=== PATIENT | male | born 1945 | race Caucasian/White ===

== ENCOUNTER → 2021-01-22 10:14 | Outpatient (REF) | payer MEDICARE, SELFPAY | LOC: ANHLAB 10:14 | PROVIDERS: Visit Provider Nurse Practitioner | DX: L98.9 Disorder of the skin and subcutaneous tissue, unspecified (principal) | CPT/HCPCS: 88305; 88331 ==

== ENCOUNTER 2024-02-05 17:23 | Observation (INO) | payer MEDICARE, SELFPAY ==
[2024-02-05] VITALS (9 sets, daily range): BP systolic 178–218; BP diastolic 87–110; PULSE 78–96; RESP 16–20; TEMP 36.4–37; O2SAT 95–99; BMI 30.9
--- NOTE | ~2024-02-05 | CT_ITS ---
EXAMINATION: CTA brain carotid DATE: 02/05/2024 17:52 INDICATION: Left-sided numbness TECHNIQUE: Computed tomographic angiography (CTA) of the head was performed with 100 mL Omnipaque-350 intravenous contrast. CTA of the neck was performed with intravenous contrast. The dose-length produ ct was 1280.76 mGy-cm. Maximum intensity projection and volume rendered 3D-reconstructions were creat ed by the technologist on a separate workstation. Automated exposure control and iterative reconstruc tion technique were employed. COMPARISON: None. FINDINGS: HEAD CTA: There is no acute intraparenchymal hemorrhage. No evidence of mass lesion. No evidence of a cute infarction. An old infarct of the right parieto-occipital region is noted. There is mild periven tricular and subcortical hypodensity probably related to small vessel ischemic disease. There is mild prominence of the sulci and ventricles related to cerebral atrophy. Intracranial calcified cerebral atherosclerosis is noted. There are no extra-axial collections. There is no mass effect or midline sh ift. Changes in the globes are likely from ocular lens surgery. A polyp or mucous retention cyst is n oted in the left maxillary sinus. There is no significant stenosis of the basilar artery or posterior cerebral arteries. There is no si gnificant stenosis of the intracranial internal carotid arteries or the anterior or middle cerebral a rteries. The anterior communicating artery and posterior communicating arteries are normal. There is no aneurysm. There is calcified atherosclerosis and significant stenosis of the right vertebral arter y near the skull base. NECK CTA: Nodules of the thyroid measure up to 9 mm on the left.. The submandibular and parotid gland s are symmetric. There is no lymphadenopathy. There are no masses identified. The airway is unremarka ble. The superior mediastinum is unremarkable. There is moderate cervical spondylosis. There is 0% stenosis of the proximal right internal carotid artery relative to normal distal artery l umen diameter (NASCET criteria). There is 0% stenosis of the proximal left internal carotid artery re lative to normal distal artery lumen diameter. IMPRESSION: 1. Prior right parietal occipital region infarct without acute intracranial abnormality. Significant stenosis of the right vertebral artery near the skull base, otherwise normal head CTA. 2. 0% stenosis of the proximal right internal carotid artery relative to normal distal artery lumen d iameter (NASCET criteria). 3. 0% stenosis of the proximal left internal carotid artery relative to normal distal artery lumen di ameter. Reviewed, dictated and finalized at location F. IMPRESSION: 1. Prior right parietal occipital region infarct without acute intracranial abn ormality. Significant stenosis of the right vertebral artery near the skull bas e, otherwise normal head CTA. 2. 0% stenosis of the proximal right internal carotid artery relative to normal distal artery lumen diameter (NASCET criteria). 3. 0% stenosis of the proximal left internal carotid artery relative to normal distal artery lumen diameter.
--- NOTE | ~2024-02-05 | CT_ITS ---
EXAMINATION: CT brain wo con INDICATION: Left-sided numbness COMPARISON: None TECHNIQUE: Standard unenhanced head CT. The dose-length product (DLP) was 681.00 mGy-cm. The mA was a djusted according to patient size. Iterative reconstruction technique was employed. FINDINGS: No acute intraparenchymal hemorrhage. No evidence of mass lesion. No evidence of acute infa rction. 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 There is mild periventricular and subcortical hypodensity probably related to small vessel ischemic disease. There is mild prominen ce of the sulci and ventricles related to cerebral atrophy. Intracranial calcified cerebral atheroscl erosis is noted. No extra-axial collections. No mass effect or midline shift. Changes in the globes a re likely from ocular lens surgery. There is a polyp or mucous retention cyst of the left maxillary s inus. IMPRESSION: 1. Prior right parieto-occipital region infarct without acute intracranial abnormality. 2. Age related findings. Reviewed, dictated and finalized at location F. IMPRESSION: 1. Prior right parieto-occipital region infarct without acute intracranial abno rmality. 2. Age related findings.
--- NOTE | ~2024-02-05 | MR_ITS ---
EXAMINATION: MR brain/brain stem wo/w con DATE: 02/06/2024 12:40 INDICATION: Transient ischemic episode TECHNIQUE: Magnetic resonance imaging (MRI) of the brain and brainstem was performed without and with 20 mL Multihance intravenous contrast. Sequences included sagittal and axial T1-weighted SE, axial d iffusion-weighted FS SE, axial 3D SWAN, axial T2-weighted FLAIR, and axial T2-weighted FSE. Postcontr ast axial and coronal T1-weighted SE was obtained. Apparent diffusion coefficient (ADC) maps were cre ated. COMPARISON: CT and CT angiogram dated 02/05/2024 FINDINGS: Small region of encephalomalacia in the right parieto-occipital region consistent with sequela of old infarct. There are no areas of restricted diffusion to suggest acute infarction. No intracranial hem orrhage or abnormal intracranial mass lesion. There are scattered areas of nonspecific increased T2-w eighted signal intensity in the cerebral white matter, predominantly involving the deep and periventr icular white matter. There are no intraparenchymal signal abnormalities seen on the other pulse seque nces. The ventricles are symmetric and normal in size. There are no abnormal extra-axial fluid collec tions. Flow voids are seen in the cerebral arteries on the T2-weighted sequences consistent with thei r expected patency. Changes of bilateral intraocular lens replacement. Visualized orbits and soft tis sues are unremarkable. Mild mucosal thickening in the bilateral maxillary and ethmoid sinuses. There are no areas of abnormal enhancement on the post contrast images. IMPRESSION: 1. Small old right parieto-occipital infarct. No acute intracranial process. 2. Scattered small foci of nonspecific cerebral white matter T2 hyperintensity which is within normal limits for age and likely sequela of chronic small vessel ischemic disease. Reviewed, dictated and finalized at location A. IMPRESSION: 1. Small old right parieto-occipital infarct. No acute intracranial process. 2. Scattered small foci of nonspecific cerebral white matter T2 hyperintensity which is within normal limits for age and likely sequela of chronic small vesse l ischemic disease.
--- NOTE | ~2024-02-05 | XR_ITS ---
EXAMINATION: XR chest 1V portable INDICATION: Left-sided numbness TECHNIQUE: Portable AP chest at 1758 hours COMPARISON: None available FINDINGS: The lungs are free of acute opacities. No pleural effusion or pneumothorax. The heart size is normal. Median sternotomy wires and mediastinal surgical clips are seen, likely from prior coronar y artery bypass grafting. IMPRESSION: 1. No acute cardiopulmonary abnormality. Reviewed, dictated and finalized at location F.
--- NOTE | 2024-02-05 17:26 | ECG_ITS ---
Measurements Intervals [place] Rate: 74 P: 59 NH: 173 QRS: -23 QRSD: 104 T: 54 QT: 397 QTc: 443 Interpretive Statements SINUS RHYTHM POSSIBLE LEFT ATRIAL ENLARGEMENT BORDERLINE R WAVE PROGRESSION, ANTERIOR LEADS NONSPECIFIC ST-T WAVE ABNORMALITY- HIGH LATERAL LEADS BASELINE WANDER- V5 BORDERLINE ECG NO PREVIOUS ECG AVAILABLE FOR COMPARISON Electronically Signed On 02-05-2024 18:32:28 CDT by Chu Castellano D.O.
--- NOTE | 2024-02-05 17:38 | ED.NEUROSD ---
HPI - Neuro Symptoms/Deficit General Chief Complaint: Suspected CVA Stated Complaint: L SIDED NUMBNESS SINCE 1700 Time Seen by Provider: 02/05/24 17:35 History of Present Illness HPI Narrative: 78-year-old male presents to the emergency department for evaluation for CVA symptoms. Patient states that at 5:00 p.m. he had onset of left-sided weakness. Patient states symptoms last about 20 minutes and did begin to improve. Upon arrival to the emergency department patient states he does still have some minor symptoms but denies any current numbness or weakness. Related Data Home Medications Medication Instructions Recorded Confirmed aspirin 81 mg tablet,delayed 81 mg PO DAILY 01/22/21 02/05/24 release (Adult Aspirin Regimen) triamterene 37.5 0.5 cap PO DAILY 02/05/24 02/05/24 mg-hydrochlorothiazide 25 mg capsule Allergies Allergy/AdvReac Type Severity Reaction Status Date / Time No Known Allergies Allergy Verified 02/04/24 14:02 Review of Systems Review of Systems: All systems reviewed & are unremarkable except as noted in HPI and below PMFSH Past Medical History Medical History Coronary artery disease Heart disease High cholesterol Hyperlipidemia Hypertension Preoperative clearance Surgical History Surgical History H/O hernia repair History of cholecystectomy History of heart bypass surgery Family History Family History Father Heart disease Social History Social History Smoking status: Never smoker Alcohol intake: never Substance use: never Substance use type: does not use Do You Feel Safe in your Home?: Yes Lack of Transportation: No Lack of Food: Never True Current Housing: I Have Housing Concerned About Future Housing: No Difficulty Paying Gas/Electric Bills: No Difficulty Paying for Meds: No Currently Unemployed: No Education: Master's Degree or Higher Difficulty w/ Childcare or Family Care: No Living arrangements: with family Occupation/Education: retired 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 HEAD: normocephalic, atraumatic. EYES: PERRLA/EOMI, conjunctivae clear. NOSE: Normal no drainage EARS:TMS clear with good light reflex. THROAT: Pharynx clear, no exudate. NECK: Supple. No adenopathy, no masses. RESPIRATORY: Airway patent, respirations nonlabored. Clear to auscultation bilaterally, no rales, rhonchi, wheezing. CARDIOVASCULAR: Regular rate and rhythm without murmurs rubs or gallops. ABDOMINAL: Soft, nontender, nondistended, normal bowel sounds MUSCULOSKELETAL: Moves all extremities. Strength/ROM intact, No edema, No calf tenderness. NEURO: Alert. Cranial nerves II through XII intact. Grossly intact. No drift or ataxia, NIH 0 SKIN: Warm, dry. Normal Color Course Course Emergency Course: Patient was admitted for CVA/TIA workup Vital Signs Vital signs: Vital Signs Pulse Rate 92 02/05/24 17:50 Temperature 97.6 F 02/06/24 13:55 Pulse Rate 59 L 02/06/24 13:55 Respiratory Rate 14 02/06/24 13:55 Blood Pressure 188/102 H 02/06/24 15:25 Pulse Oximetry 97 02/06/24 13:55 Oxygen Delivery Room Air 02/06/24 08:23 MDM - Neuro Symptoms/Deficit MDM Narrative Medical decision making narrative: 78-year-old male presenting ED for evaluation of left-sided weakness. Patient's CT brain and CTA brain showed no acute findings. Case was discussed with hospitalist patient was accepted for admission. Neurology was consulted. Patient family were also updated the results of the workup. Differential Diagnosis Differential diagnosis: Likely subarachnoid
[2024-02-05 17:41] LABS: Estimated CRCL calculation 50 ml/min; Estimated Glomerular Filt Rate 53
[2024-02-05 17:54] LABS: Glucose Point of Care 117 mg/dl (65-105)
[2024-02-05 18:17] LABS: Basophils Percent Auto 0.5 % (0.2-1.2); Eosinophils Absolute Auto 0.1 K/mm3 (0-0.3); Eosinophils Percent Auto 1.7 % (0-4.4); Hemoglobin 14.8 g/dL (14.0-18.0); Immature Granulocyte Absolute 0.01 K/mm3 (0.00-0.031); Immature Granulocyte Percent A 0.2 % (0-0.5); Lymphocytes Absolute Auto 1.32 K/mm3 (0.9-3.2); Lymphocytes Percent Auto 20.1 % (18.3-44.2); Mean Corpuscular HGB Conc 32.9 g/dl (32-36); Mean Corpuscular Volume 94.3 fl (80-100); Mean Platelet Volume 10.3 fl (7.4-10.4); Monocytes Absolute Auto 0.4 K/mm3 (0.1-0.6); Monocytes Percent Auto 6.4 % (2.6-8.5); Neutrophils Absolute Auto 4.7 K/mm3 (1.3-6.7); Neutrophils Percent Auto 71.1 % (45.5-73.1); Platelet Count Result 207 k/mm3 (150-375); Red Blood Count 4.77 M/mm3 (4.6-6.20); Red Cell Distribution Width 13.5 % (11.5-14.5); White Blood Count 6.6 K/mm3 (4.5-10.0)
[2024-02-05 18:27] LABS: Alanine Aminotransferase 24 U/L (6-50); Alkaline Phosphatase 69 U/L (38-126); Anion Gap 8 mmol/L (8-16); Aspartate Amino Transferase 31 U/L (17-59); Blood Urea Nitrogen 28 mg/dL (9-20); Calcium 8.8 mg/dL (8.4-10.2); Carbon Dioxide 24 mmol/L (22-30); Chloride 107 mmol/L (98-107); Estimated CRCL calculation 58 ml/min; Estimated Glomerular Filt Rate > 60; Glucose 105 mg/dL (65-110); Potassium 3.7 mmol/L (3.4-5.0); Prothrombin Time 13.8 Seconds (11.1-14.7); Sodium 139 mmol/L (137-145)
[2024-02-05 18:28] LABS: Partial Thromboplastin Time 30.8 Seconds (22.3-36.8)
[2024-02-05 18:43] LABS: Troponin I 0.013 ng/mL (0.000-0.034)
[2024-02-05] MEDS: ASPIRIN 81 MG CHEWABLE TABLET 243 MG PO (19:09)
--- NOTE | 2024-02-05 20:26 | PM.IMHP ---
H&P: HPI History of Present Illness Date/Time: 02/05/24 20:26 Chief Complaint: numbness Narrative: this is a 78-year-old male with past medical history significant for hypertension, benign prostatic hyperplasia, patient presents to the emergency room after having episode that lasted 15-20 minutes left upper extremity weakness numbness, denies any speech disturbance, patient denies any lightheadedness, headaches, vision changes, no nausea, no vomiting, no chest pain, no shortness of breath, no palpitations. Patient was at a visitation service at a . Drove himself to the emergency room. Upon arrival to emergency room symptoms had resolved. Preliminary workup was significant for blood pressure systolic in the 200s diastolic in the 100s. Patient has been placed in observation for evaluation management EXAMINATION: CT brain wo con ? INDICATION: Left-sided numbness ? COMPARISON: None TECHNIQUE: Standard unenhanced head CT. The dose-length product (DLP) was 681.00 mGy-cm. The mA was adjusted according to patient size. Iterative reconstruction technique was employed. ? FINDINGS: No acute intraparenchymal hemorrhage. No evidence of mass lesion. No evidence of acute infarction. 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 There is mild periventricular and subcortical hypodensity probably related to small vessel ischemic disease. There is mild prominence of the sulci and ventricles related to cerebral atrophy. Intracranial calcified cerebral atherosclerosis is noted. No extra-axial collections. No mass effect or midline shift. Changes in the globes are likely from ocular lens surgery. There is a polyp or mucous retention cyst of the left maxillary sinus. IMPRESSION: 1. Prior right parieto-occipital region infarct without acute intracranial abnormality. 2. Age related findings. EXAMINATION: XR chest 1V portable INDICATION: Left-sided numbness TECHNIQUE: Portable AP chest at 1758 hours COMPARISON: None available FINDINGS: The lungs are free of acute opacities. No pleural effusion or pneumothorax. The heart size is normal. Median sternotomy wires and mediastinal surgical clips are seen, likely from prior coronary artery bypass grafting. IMPRESSION: 1. No acute cardiopulmonary abnormality. EXAMINATION: CTA brain carotid DATE: 02/05/2024 17:52 INDICATION: Left-sided numbness TECHNIQUE: Computed tomographic angiography (CTA) of the head was performed with 100 mL Omnipaque-350 intravenous contrast. CTA of the neck was performed with intravenous contrast. The dose-length product was 1280.76 mGy-cm. Maximum intensity projection and volume rendered 3D-reconstructions were created by the technologist on a separate workstation. Automated exposure control and iterative reconstruction technique were employed. COMPARISON: None. FINDINGS: HEAD CTA: There is no acute intraparenchymal hemorrhage. No evidence of mass lesion. No evidence of acute infarction. An old infarct of the right parieto-occipital region is noted. There is mild periventricular and subcortical hypodensity probably related to small vessel ischemic disease. There is mild prominence of the sulci and ventricles related to cerebral atrophy. Intracranial calcified cerebral atherosclerosis is noted. There are no extra-axial collections. There is no mass effect or midline shift. Changes in the globes are likely from ocular lens surgery. A polyp or mucous retention cyst is noted in the left maxillary sinus. There is no significant stenosis of the basilar artery or posterior cerebral arteries. There is no significant stenosis of the intracranial internal carotid arteries or the anterior or middle cerebral arteries. The anterior communicating artery and posterior communicating arteries are normal. There is no aneurysm. There is calcified atherosclerosis and significant stenosis of the right vertebral artery near the skull base. NECK CTA: Nodules of the thyroid measure u
[2024-02-05] MEDS: hydrALAZINE HCL 20 MG/ML VIAL 10 MG IV PUSH (20:54)
--- NOTE | 2024-02-05 21:40 | ADMGEN ---
This patient, J Carlos Sher, was admitted to 3 [facility] Surg Room 319-01. Patient/family oriented to hospital policies and general routines including ID bracelet, bed and alarms, visiting hours, pain management, procedures, bathroom and other care routines, personal items, smoking policy, room service/diet, and visiting hours. Information on how to activate the Rapid Response Team has been discussed. Patient/Family are encouraged to report perceived risks to care and to ask questions if they do not understand what they are told or what they should do.
[2024-02-06] VITALS (9 sets, daily range): BP systolic 172–237; BP diastolic 82–102; PULSE 57–71; RESP 13–14; TEMP 36.4–36.8; O2SAT 94–97
--- NOTE | 2024-02-06 | ECHO_ITS ---
Patient Info Name: J Carlos Sher Age: 78 years : 1945 Gender: Male Ht: 71 in Wt: 222 lbs BSA: 2.27 m2 HR: 52 bpm BP: 172 / 82 mmHg Heart Rhythm: Sinus Rhythm Technical Quality: Good Exam Date: 02/06/2024 2:01 PM Exam Location: Echo Lab Patient Status: Outpatient Admit Date: 02/05/2024 Staff Ordering Physician: Timoteo Paul MD Associate Accountant: Symone Waldrop RDCS Attending Provider: Travis Joyce MD Exam Type: CA echo doppler w bubble study Study Info Complete two-dimensional, color flow and Doppler transthoracic echocardiogram is performed with agitated saline. Contrast/Agitated Saline Contrast/Ag. Saline: Agitated Saline Amount: 20.00 ml Administered By: Judith Mendieta Existing IV Access: Yes IV Access Condition: patent with no signs of infiltration Summary 1. Left ventricular chamber dimension is normal. 2. Left ventricular systolic function is normal, estimated at 55-60%. 3. The left ventricular diastolic function is grade I diastolic dysfunction. 4. E/e' 16 is elevated. 5. There is moderate aortic valve sclerosis. 6. There is mild aortic valve stenosis with a peak velocity of 166 cm/s, mean gradient of 6 mmHg, and aortic valve area of 1.6 cm2. 7. No pulmonary hypertension, estimated pulmonary arterial systolic pressure is 21 mmHg. 8. There is trace pulmonic regurgitation. Left Ventricle E/e' 16 is elevated. Left ventricular chamber dimension is normal. Left ventricular systolic function is normal, estimated at 55-60%. The left ventricular diastolic function is grade I diastolic dysfunction. Right Ventricle Right ventricular systolic function is normal and with normal TAPSE 2.2 cm. Right ventricular chamber dimension is normal. Left Atria Left atrial chamber dimension is normal. Right Atria Right atrial chamber dimension is normal. Atrial Septum Agitated saline injection with and without valsalva maneuver opacified right side cardiac chambers without shunt to left side cardiac chambers. Intact interatrial septum visualized by 2D and agitated saline imaging. Aortic Valve The aortic valve is trileaflet. There is moderate aortic valve sclerosis. There is mild aortic valve stenosis with a peak velocity of 166 cm/s, mean gradient of 6 mmHg, and aortic valve area of 1.6 cm2. There is no aortic valve regurgitation. Pulmonic Valve There is trace pulmonic regurgitation. Mitral Valve There is no mitral valve stenosis. There is no mitral valve regurgitation. Tricuspid Valve There is no tricuspid valve regurgitation. No pulmonary hypertension, estimated pulmonary arterial systolic pressure is 21 mmHg. Pericardium/Pleural There is no pericardial effusion. Inferior Vena Cava Normal inferior vena cava with >50% collapse upon inspiration consistent with normal right atrial pressure, 5 mmHg. Aorta The aortic root size at the sinus of Valsalva is normal. Left Ventricular Outflow Tract Name Value Normal LVOT 2D LVOT Diameter 2.0 cm LVOT Doppler LVOT Peak Gradient 3 mmHg LVOT Mean Gradient 1 mmHg LVOT VTI 19 cm LVOT VTI
[2024-02-06] MEDS: lisinopriL 20 MG TABLET 40 MG PO (00:43)
[2024-02-06] MEDS: ACETAMINOPHEN 500 MG TABLET 1000 MG PO (00:44)
[2024-02-06] MEDS: lisinopriL 20 MG TABLET 40 MG BY MOUTH (08:56)
[2024-02-06] MEDS: hydrALAZINE HCL 25 MG TABLET BY MOUTH (08:56)
[2024-02-06] MEDS: ACETAMINOPHEN 325 MG TABLET 650 MG PO ×2 (09:36→15:46)
[2024-02-06] MEDS: TRIAMTERENE/HCTZ 18.75/12.5 MG TABLET 1 TAB PO (09:36)
--- NOTE | 2024-02-06 10:37 | PM.IMPN ---
Progress Note: A&P Assessment and Plan (1) TIA (transient ischemic attack): Code(s): G45.9 - Transient cerebral ischemic attack, unspecified Status: Acute Assessment and Plan: 02/05/2024: [facility] angiogram of head and neck reviewed continue to monitor patient on aspirin and statin at home 02/06/2024: Continue neuro checks Neurology to see patient today Patient denies any numbness or tingling at this time (2) Uncontrolled hypertension: Code(s): I10 - Essential (primary) hypertension Status: Acute Assessment and Plan: 02/05/24 restart home meds 02/06/2024: Increased hydralazine 50 mg p.o. b.i.d. Lisinopril 40 mg p.o. daily ordered Continue triamterene/hydrochlorothiazide (3) Coronary artery disease: Code(s): I25.10 - Atherosclerotic heart disease of [place] coronary artery without angina pectoris Status: Acute Assessment and Plan: 02/05/24: chest pain-free 02/06/2024: Continue aspirin and Lipitor (4) Hyperlipidemia: Code(s): E78.5 - Hyperlipidemia, unspecified Status: Acute Assessment and Plan: 02/05/24: continue statin 02/06/2024: No change to current treatment plan Time Spent With Patient Time with patient: Greater than 35 minutes Subjective Date/time seen: 02/06/24 10:37 Interval history: This is a 78-year-old male presents to the hospital on 02/05/2024 for evaluation of CVA like symptoms. He states that he noticed some left-sided weakness around 5:00 p.m. yesterday that lasted about 20 minutes and then began to improve. Workup in the hospital included head CT which shown right parieto-occipital region infarct however this is an old finding. Chest x-ray was negative. Head and neck CTA showing right parietal occipital region infarct which is old, 0% stenosis bilaterally. Labs were essentially unremarkable. Blood pressure readings ranging 178/87 to 218/110. Neurology consulted, plan for a MRI of the brain today. Review of Systems Review of Systems: left upper extremity numbness and weakness All systems reviewed & are unremarkable except as noted in HPI and below Constitutional: Constitutional: Reports as per HPI and Reports no additional constitutional complaints Eyes: Eyes: Reports as per HPI and Reports no additional eye complaints ENT: Reports system reviewed and no additional complaints, except as documented and Reports as per HPI Cardiovascular: Cardiovascular: Reports as per HPI and Reports no additional cardiovascular complaints Respiratory: Respiratory: Reports as per HPI and Reports no additional respiratory complaints Gastrointestinal: Gastrointestinal: Reports as per HPI and Reports no additional gastrointestinal complaints Genitourinary: Genitourinary: Reports no additional male genitourinary complaints and Reports as per HPI Musculoskeletal: Musculoskeletal: Reports no additional musculoskeletal complaints and Reports as per HPI Integumentary/Breasts: Skin/Breast: Reports system reviewed and no additional complaints, except as docu and Reports as per HPI Neurologic: Reports system reviewed and no additional complaints, except as documented and Reports as per HPI Psychiatric: Psychiatric: Reports no additional psychiatric complaints and Reports as per HPI Exam Narrative: General: In no acute distress, well nourished Head: atraumatic, no encephalopathy Eyes: EOMI, PERRLA, slcera clear ENT: moist mucous membranes, nasal passages clear Neck: supple, no JVD, no adenopathy, trachea midline Cardiac: Normal S1 and S2. No murmur, gallops or friction rubs, peripheral pulses intact. Respiratory: Lungs clear to auscultation, no adventitious lung sounds Gastrointestinal: soft, non-distended, non-tender, normoactive bowel sounds. : voiding without difficulty. Extremities: moves all extremities well, no edema, good ROM, strength 5/5 Skin: avtar
--- NOTE | 2024-02-06 14:20 | WPDNEURCNPN ---
Assessment and Plan Assessment and plan (1) TIA (transient ischemic attack): Code(s): G45.9 - Transient cerebral ischemic attack, unspecified Status: Acute (2) Stenosis of left vertebral artery: Code(s): I65.02 - Occlusion and stenosis of left vertebral artery Status: Acute Plan 1. TIA 2. Right vertebral artery stenosis number the skull base plan continue aspirin 81mg daily with the addition of Plavix 75mg daily for the next 6 weeks, consultation with a neurosurgeon regarding left vertebral artery stenosis near the skull base. Also obtain the echocardiogram while he is here to evaluate if any further adjustment necessary. Consult date: 02/06/24 HPI: J Carlos Sher is a 78 year old male Admitted to the hospital through the emergency room with the complaint of sudden onset of left-sided weakness lasting for about 20minutes with subsequent improvement and the history of taking aspirin 81mg daily in addition to triamterene 37.5mg daily and with history of ongoing coronary artery disease, hyperlipidemia, hypertension, and history of bypass cardiac surgery, though never smoker, initial examination in the emergency room revealed the vital signs blood pressure of 218/110, normal CBC, normal CMP except BUN of 28 normal routine lab studies, CT scan of the head with right parieto-occipital region infarct without any acute intracranial abnormalities. , negative chest x-ray, head and neck CTA documenting previous right parietal occipital region infarct with significant stenosis of the right vertebral artery near the skull base but otherwise normal head CTA and MRI of the brain documenting small old right parieto-occipital infarct in addition to scattered small foci of nonspecific white matter hyperintensities. [facility] Past Medical History Medical History Coronary artery disease Heart disease High cholesterol Hyperlipidemia Hypertension Preoperative clearance Surgical History Surgical History H/O hernia repair History of cholecystectomy History of heart bypass surgery Family History Family History Father Heart disease Social History Social History Smoking status: Never smoker Alcohol intake: never Substance use: never Substance use type: does not use Do You Feel Safe in your Home?: Yes Lack of Transportation: No Lack of Food: Never True Current Housing: I Have Housing Concerned About Future Housing: No Difficulty Paying Gas/Electric Bills: No Difficulty Paying for Meds: No Currently Unemployed: No Education: Master's Degree or Higher Difficulty w/ Childcare or Family Care: No Living arrangements: with family Occupation/Education: retired 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 Spiritual care concerns: No Meds Home Medications and Allergies Home Medications Medication Instructions Recorded Confirmed Type aspirin 81 mg tablet,delayed 81 mg PO DAILY 01/22/21 02/05/24 History release (Adult Aspirin Regimen) atorvastatin 80 mg tablet See Rx Instructions .Route 08/29/23 02/05/24 Rx .COMPLEX #90 tabs hydralazine 25 mg tablet See Rx Instructions .Route 08/29/23 02/05/24 Rx .COMPLEX #180 tabs lisinopril 40 mg tablet See Rx Instructions .Route 11/18/23 02/05/24 Rx .COMPLEX #90 tabs tamsulosin 0.4 mg capsule 0.4 mg PO DAILY #90 caps 02/04/24 02/05/24 Rx triamterene 37.5 0.5 cap PO DAILY 02/05/24 02/05/24 History mg-hydrochlorothiazide 25 mg capsule Allergies Allergy/AdvReac Type Severity Reaction Status Date / Time No Known Allergies Allergy Verified 02/04/24 14:02 Vital Signs Vital Signs - 24 hr 02/05/24 19:28 02/05/24 18:00 02/05/24 20:36 Temperature 37.0 C Pulse Rat
[2024-02-06] MEDS: CLOPIDOGREL BISULFATE 75 MG TABLET PO (15:35)
--- NOTE | 2024-02-06 17:02 | PM.DS ---
DS: Admitting Diagnosis Discharge Date 02/06/24 Admitting Diagnosis TIA Uncontrolled hypertension Coronary artery disease Hyperlipidemia DS: Summary Hospital Course Reason for hospitalization: TIA Uncontrolled hypertension Coronary artery disease Hyperlipidemia Hospital Course: This is a 78-year-old male presents to the hospital on 02/05/2024 for evaluation of CVA like symptoms.? He states that he noticed some left-sided weakness around 5:00 p.m. yesterday that lasted about 20 minutes and then began to improve.? Workup in the hospital included head CT which shown right parieto-occipital region infarct however this is an old finding? Chest x-ray was negative.? Head and neck CTA showing right parietal occipital region infarct which is old, 0% stenosis bilaterally, significant stenosis of the right vertebral artery near the skull base. MRI of the brain showing small old right parietal 0-occipital infarct, age-related changes. Echo shown left ventricle systolic function normal with an estimated EF of 55-60%, grade 1 diastolic dysfunction, no pulmonary hypertension. Labs were essentially unremarkable.? Blood pressure readings ranging 178/87 to 218/110.? Neurology consulted and suggest that he sees the neurovascular surgeon for his stenosis of the right vertebral artery near the skull base. His blood pressure is somewhat elevated however his did have to go to the emergency room while visiting and he said that he was pretty stressed about that. Patient is stable for discharge at this time. I did instruct him to keep track of his blood pressures at home and if they remain elevated greater than 160/100 he would need to follow-up with his primary care physician for further adjustment of his medication. He is currently going to be sent home on hydralazine 50 mg b.i.d. which is increased from his 25 mg b.i.d. that he takes at home. [facility] Neurosurgery phone number provided at discharge. Final diagnosis: TIA, uncontrolled hypertension, coronary artery disease, hyperlipidemia Status at Discharge Cognitive/behavioral status at discharge: Alert oriented x4 Functional status at discharge: independent ambulation Overall status at discharge: patient is progressing back to baseline Time Spent with Patient Time attestation: Total time spent providing and/or coordinating discharge services: Time spent: Greater than 30 minutes Exam Narrative: General: In no acute distress, well nourished Head: atraumatic, no encephalopathy Eyes: EOMI, PERRLA, sclera clear today, denies vision changes ENT: moist mucous membranes, nasal passages clear Neck: supple, no JVD, no adenopathy, trachea midline Cardiac: Normal S1 and S2. RRR, No murmur, gallops or friction rubs, peripheral pulses intact. Respiratory: Lungs clear to auscultation, no adventitious lung sounds, currently on room air Gastrointestinal: soft, non-distended, non-tender, normoactive bowel sounds. : voiding without difficulty. Extremities: moves all extremities well Skin: clean, dry, intact. No wounds or lesions. Neuro: Alert and oriented x4, cranial nerves intact, no neuro deficits. Facial features symmetrical he denies any numbness or tingling, strength 5/5 in all extremities Psych: normal mood, normal affect, interactive ? DS: Data Data Completed and Pending Completed studies during hospitalization: Head CT Chest x-ray Head and CTA Brain MRI Pending studies at discharge: None Labs on day of discharge: Labs from last 24 hours 02/05/24 02/05/24 02/05/24 18:05 17:38 17:29 WBC 6.6 RBC 4.77 Hgb 14.8 Hct 45.0 MCV 94.3 MCH 31.0 MCHC 32.9 RDW 13.5 Plt Count 207 MPV 10.3 Immature Gran % (Auto) 0.2 Neut % (Auto) 71.1 Lymph % (Auto) 20.1 [place] % (Auto) 6.4 Eos % (Auto) 1.7 Baso % (Auto) 0.5 Lymph # (Auto) 1.32 [place] # (Auto) 0.4 Eos # (Auto) 0.1 Baso # (Auto) 0.0 Abs Immat Gran (auto) 0.01 Absolute Neuts (auto) 4.7
== END 2024-02-06 17:28 | disposition home or self-care (01) ==
LOC: ANHED 18:57 → ANH3MEDSUR 21:35
PROVIDERS: Admitting Provider Internal Medicine; Emergency Provider Emergency Medicine; PCP Family Medicine; Visit Provider Internal Medicine
DX: G45.9 Transient cerebral ischemic attack, unspecified (principal); I11.9 Hypertensive heart disease without heart failure; I25.10 Atherosclerotic heart disease of native coronary artery without angina pectoris; E78.00 Pure hypercholesterolemia, unspecified; Z95.1 Presence of aortocoronary bypass graft; Z79.82 Long term (current) use of aspirin
CPT/HCPCS: 36415; 70450; 70496; 70498; 70553; 71045; 80053; 82948; 84484; 85025; 85610; 85730; 93005; 93306; 96374; 96375; 99285; A9270; A9577; G0378; J0360; Q9967